=== PATIENT | male | born 2000 | race African-American/Black ===

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

== ENCOUNTER 2023-04-19 19:16 | Emergency (ER) | payer OTHER ==
[2023-04-19] MEDS ORDERED: Fluorescein Opthalmic Strip ONE (19:25)
[2023-04-19] MEDS ORDERED: Tetracaine 0.5% PF 4 ML BOT ONE (19:26)
[2023-04-19] MEDS ORDERED: Ibuprofen 200 MG TAB ONE (19:43)
== END 2023-04-19 20:45 | disposition home or self-care (01) ==
LOC: NAV ERS 19:16
DX: S09.93XA Unspecified injury of face, initial encounter (principal); Z87.891 Personal history of nicotine dependence; W40.8XXA Explosion of other specified explosive materials, initial encounter
CPT/HCPCS: 70220